=== PATIENT | male | born 1985 | race Caucasian/White ===

== ENCOUNTER 2022-03-14 21:11 | Outpatient (CLI) | payer OTHER | END 2022-03-14 21:12 | disposition home or self-care (01) | LOC: SC 21:11 | PROVIDERS: ATTEND Nurse Practitioner Family | DX: G47.33 Obstructive sleep apnea (adult) (pediatric) (principal); G47.61 Periodic limb movement disorder | CPT/HCPCS: 95810 ==

== ENCOUNTER 2022-09-06 14:34 | Outpatient (CLI) | payer OTHER ==
--- NOTE | 2022-09-06 15:12 | SLEEP CARE CONSULTATION ---
Information from patient questionnaire entered by Kimber Espana. I have reviewed and concur with the information entered by Kimber Espana. This document represents the service I personally performed and the decisions made by , Umm Rossi ARNP. History of Present Illness Service Date and Time: 09/06/2022 1434 Previous diagnosis: Severe, Obstructive Sleep Apnea-Hypopnea Syndrome AHI: 34.0 (in 2021) Reason for follow up: first compliance (SET UP 06/06/22) Equipment type: CPAP (RESMED Airsense 11, s/u 05/2022) Equipment obtained from: [employer] ([employer]) Mask style: Full face Mask brand: Resmed (AirFit F30i) Backup mask available: No (will keep old mask when replaced) Last cushion change: over 2 months Prior sleep studies: Yes Year and Where: [facility] 2017 Type of Sleep Study: Polysomnography (completed 03/14/22) HPI additional information: MARGARITA LYNNE was diagnosed to have severe, AHI 34.0, obstructive sleep apnea- hypopnea syndrome and returned today for CPAP therapy first compliance follow- up. Sleep Study - Results Type of Sleep Study: Polysomnography (completed 03/14/22) Prior sleep studies: Yes Year and Where: [facility] 2017 CPAP Compliance Data - Data Reviewed with Patient Average duration of nightly device use: 4 HRS 52 MIN Compliance rate %: 85 (06/17/22-09/04/22; 78/80 days used) Current pressure setting (cmH2O): 5-20 (median 7.3, avg 11.0, max 12.2) Average residual AHI: 1.2 Central apnea: 0.1 Obstructive apnea: 0.6 Hypopnea: 0.4 Average large leak: 1.1 lpm Subjective Missed days of use due to: reports: travel (camping) Patient concerns: reports: air blowing in eyes (sometimes). denies: aerophagia, mask discomfort, mask leak noise, condensation in mask/hose, nasal congestion, dry mouth, nose, throat, epistaxis Observed to snore while using device: No Current pressure setting perceived as: comfortable On therapy, patient: reports: sleeping better, awakening more refreshed, being more awake and alert during the day, more rested overall. denies: drowsiness while driving Initial [place] Sleepiness Scale score: 10 (11/01/2021) Current [place] Sleepiness Scale score: 8 (09/06/22) Allergies and Home Medications Known drug allergies: No Drug allergies reviewed: Yes Home medication list reviewed: Yes (Zyrtec, temp daily med) Allergy and home medication list: Allergies No Known Drug Allergies Allergy (Verified 09/05/22 17:10) Review of Systems Review of systems same as previous: Yes (no changes) Physical Exam Vital signs obtained and entered by: KIMBER Dangelo MA Blood Pressure: 142/90 (LEFT ARM) Cuff size: regular Heart Rate: 96 O2 Saturation: 95 Height: 6 ft 2 in Weight: 308 lb 3.2 oz Body Mass Index: 39.5 BMI Classification: Obese Impression and Plan 1. Obstructive Sleep Apnea-Hypopnea Syndrome, severe, with good treatment compliance and good apnea control. On CPAP therapy, the patient has better sleep quality and is more rested overall. Patient has significant improvement of sleep apnea and is comfortable with CPAP use. He denies any problems with mask or issues with CPAP. He is using a full face Resmed F30i mask with minimal leakage. He has not changed the cushion yet and I encouraged him to reach out to his DME for supplies and change the mask cushion. He voiced understanding and agreement. The patients pressure will be changed to autoCPAP 10-13 cmH20 to reflect pressures being used. Patient advised to contact me if pressure change is uncomfortable so that it can be adjusted. Goals for apnea control discussed. Patient's apnea severity and rationale for treatment to reduce apnea, improve sleep quality and reduce cardiovascular and cerebrovascular events was reviewed. I also reviewed the benefit of consistent device use of CPAP for gastric reflux, anxiety and attention deficit. 2. Obesity, unspecified. Currently patients BMI is 39.5. Obesity increases the risk of apnea, CPAP pressure requirements and overall health risks especially cardiovascular and diabetes. Thus patient is advised to lose weight. * Change auto CPAP pressure to 10-13 cmH2O * Notify me if snoring with mask or feeling that the pressure is too much or too little * Attempt to lose weight * Call this office if any problems using CPAP * Return for follow up in 1-2 months, or sooner if concerns arise Counseling Topics: Spare mask, Weight loss health impact Visit Type: In Office Time Spent with Patient (minutes): 20 Provider Statement: I spent 100% of the Face to Face Visit with the patient with greater than 50% spent counseling the patient and coordination of care.
[2022-09-06 15:16] VITALS: BP 142/90
== END 2022-09-06 14:35 | disposition home or self-care (01) ==
LOC: SC 14:34
PROVIDERS: ATTEND Nurse Practitioner Family
DX: G47.33 Obstructive sleep apnea (adult) (pediatric) (principal); E66.9 Obesity, unspecified; Z68.39 Body mass index [BMI] 39.0-39.9, adult
CPT/HCPCS: 99212; 99213

== ENCOUNTER 2022-11-27 09:22 | Outpatient (CLI) | payer OTHER ==
[2022-11-27 09:46] VITALS: BP 136/98
--- NOTE | 2022-11-27 09:46 | SLEEP CARE CONSULTATION ---
Information from patient questionnaire entered by Kimber Espana. I have reviewed and concur with the information entered by Kimber Espana. This document represents the service I personally performed and the decisions made by , Umm Rossi ARNP. History of Present Illness Service Date and Time: 11/27/2022921 Previous diagnosis: Severe, Obstructive Sleep Apnea-Hypopnea Syndrome AHI: 34 (in 2021) Reason for follow up: other (2 MONTH F/U) Equipment type: CPAP (RESMED Airsense 11, s/u 05/2022) Equipment obtained from: [employer] (getting supplies) Mask style: Full face Mask brand: Resmed (F30i) Backup mask available: Yes (old mask) Last cushion change: couple weeks Prior sleep studies: Yes Year and Where: [facility] 2017 Type of Sleep Study: Polysomnography (completed 03/14/22) HPI additional information: MARGARITA LYNNE was diagnosed to have severe, AHI 34, obstructive sleep apnea- hypopnea syndrome and returned today for CPAP therapy two month follow-up. Sleep Study - Results Type of Sleep Study: Polysomnography (completed 03/14/22) Prior sleep studies: Yes Year and Where: [facility] 2017 CPAP Compliance Data - Data Reviewed with Patient Average duration of nightly device use: 4 HRS 37 MINS Compliance rate %: 78 (09/27/22-11/25/22; 56/60 days used) Current pressure setting (cmH2O): 10-13 Average residual AHI: 0.8 Central apnea: 0.1 Obstructive apnea: 0.4 Average large leak: 7.1 LPM Subjective Missed days of use due to: reports: other (remote location camping) Patient concerns: reports: nasal congestion (little, occasionally), dry mouth, nose, throat (occasionally). denies: aerophagia, mask discomfort, air blowing in eyes, mask leak noise, condensation in mask/hose, epistaxis Observed to snore while using device: No Current pressure setting perceived as: comfortable On therapy, patient: reports: sleeping better, awakening more refreshed, being more awake and alert during the day, more rested overall. denies: drowsiness while driving Initial [place] Sleepiness Scale score: 10 (11/01/2021) Current [place] Sleepiness Scale score: 6 (11/27/22) Allergies and Home Medications Known drug allergies: No Drug allergies reviewed: Yes Home medication list reviewed: Yes (no changes) Allergy and home medication list: Allergies No Known Drug Allergies Allergy (Verified 11/26/22 13:38) Review of Systems Review of systems same as previous: No (physical therapy for elbow) Physical Exam Vital signs obtained and entered by: KIMBER Dangelo MA Blood Pressure: 136/98 (LEFT ARM) Cuff size: long Heart Rate: 101 O2 Saturation: 96 Height: 6 ft 2 in Weight: 309 lb 3.2 oz Weight change since last visit: 1 lb gain Body Mass Index: 39.6 BMI Classification: Obese Impression and Plan 1. Obstructive Sleep Apnea-Hypopnea Syndrome, severe, with good treatment c ompliance and good apnea control. On CPAP therapy, the patient has better sleep quality and is more rested overall. Patient has been getting occasional dry mouth and nasal congestion. He states it is not every night and it is very light. He denies any other issues or concerns with using his CPAP. He is trying to use it for all sleep but occasionally will wake up and take it off and go back to sleep without truly realizing it. Patient has significant improvement of their sleep apnea and is satisfied with current CPAP therapy. Patient's apnea severity and rationale for treatment to reduce apnea, improve sleep quality and reduce cardiovascular and cerebrovascular events was reviewed. I also reviewed the benefit of consistent device use of CPAP for gastric reflux, depression, anxiety and attention deficit. 2. Obesity, unspecified. Currently patients BMI is 39.6. Obesity increases the risk of apnea, CPAP pressure requirements and overall health risks especially cardiovascular and diabetes. Thus patient is advised to continue to try to lose weight. * Continue auto CPAP pressure at 10-13 cmH2O * Notify me if snoring with mask or feeling that the pressure is too much or too little * Attempt to lose weight * Call this office if any problems using CPAP * Return for follow up in 6 months, or sooner if concerns arise Counseling Topics: Spare mask, Weight loss health impact Visit Type: In Office Time Spent with Patient (minutes): 20 Provider Statement: I spent 100% of the Face to Face Visit with the patient with greater than 50% spent counseling the patient and coordination of care.
== END 2022-11-27 09:23 | disposition home or self-care (01) ==
LOC: SC 09:22
PROVIDERS: ATTEND Nurse Practitioner Family
DX: G47.33 Obstructive sleep apnea (adult) (pediatric) (principal); E66.9 Obesity, unspecified; Z68.39 Body mass index [BMI] 39.0-39.9, adult
CPT/HCPCS: 99212; 99213